=== PATIENT | female | born 1960 | race Caucasian/White ===

== ENCOUNTER 2022-09-25 12:43 | Outpatient (OUT) | payer BC, SELFPAY ==
--- NOTE | 2022-09-25 12:55 | MM_ITS ---
Patient: SHAKIR KENNY Exam Date: 09/25/2022 : 1960 Gender:F Ordering : COLE Brown DORSEY Admission #: [id number] Family : Order #: [id number] CLICK HERE TO VIEW EXAM RADIOLOGY REPORT PROCEDURE: MM TOMOSYNTHESIS DIAGNOSTIC BI, 09/25/2022, 12:50 US BREAST BI LIMITED, 09/25/2022, 13:32 COMPARISON: [facility] MAMM PHILIP DIAG W CAD, 11/17/2019. [facility] MAMM [facility] DIAG W CAD, 01/07/2017. [facility] MAMM [facility] SCRN W CAD DIG, 10/15/2012. INDICATIONS: Pain of both breasts N64.4 Calculator Name NCI Breast Cancer Risk Assessment Tool 5 Year Breast Cancer Risk 2.70% Lifetime Breast Cancer Risk 13.60% Personal Breast Cancer No Personal Ovarian Cancer No Treatments None Family Cancers Mother with breast cancer at age 70; Sister with cervical cancer at age 36; Aunt-maternal with colon cancer at age ~73. LOCATION: [facility] BREAST COMPOSITION: Extremely dense, which lowers the sensitivity of mammography. FINDINGS: DIAGNOSTIC CATEGORY 1--NEGATIVE. RIGHT BREAST: No significant suspicious finding. No significant change has occurred. LEFT BREAST: No significant suspicious finding. No significant change has occurred. RECOMMENDATIONS: ROUTINE MAMMOGRAM AND CLINICAL EVALUATION IN 12 MONTHS. PLEASE NOTE: A NORMAL MAMMOGRAM DOES NOT EXCLUDE THE POSSIBILITY OF BREAST CANCER. A CLINICALLY SUSPICIOUS PALPABLE LUMP SHOULD BE BIOPSIED. Dictated by: Anthony Soriano M.D. on 09/25/2022 at 15:05 Approved by: Anthony Soriano M.D. on 09/25/2022 at 15:09
--- NOTE | 2022-09-25 13:34 | US_ITS ---
Patient: SHAKIR KENNY Exam Date: 09/25/2022 : 1960 Gender:F Ordering : COLE Brown DORSEY Admission #: [id number] Family : Order #: [id number] CLICK HERE TO VIEW EXAM RADIOLOGY REPORT PROCEDURE: MM TOMOSYNTHESIS DIAGNOSTIC BI, 09/25/2022, 12:50 US BREAST BI LIMITED, 09/25/2022, 13:32 COMPARISON: [facility] MAMM PHILIP DIAG W CAD, 11/17/2019. [facility] MAMM PHILIP DIAG W CAD, 01/07/2017. [facility] MAMM PHILIP SCRN W CAD DIG, 10/15/2012. INDICATIONS: Pain of both breasts N64.4 Calculator Name NCI Breast Cancer Risk Assessment Tool 5 Year Breast Cancer Risk 2.70% Lifetime Breast Cancer Risk 13.60% Personal Breast Cancer No Personal Ovarian Cancer No Treatments None Family Cancers Mother with breast cancer at age 70; Sister with cervical cancer at age 36; Aunt-maternal with colon cancer at age ~73. LOCATION: [facility] BREAST COMPOSITION: Extremely dense, which lowers the sensitivity of mammography. FINDINGS: DIAGNOSTIC CATEGORY 1--NEGATIVE. RIGHT BREAST: No significant suspicious finding. No significant change has occurred. LEFT BREAST: No significant suspicious finding. No significant change has occurred. RECOMMENDATIONS: ROUTINE MAMMOGRAM AND CLINICAL EVALUATION IN 12 MONTHS. PLEASE NOTE: A NORMAL MAMMOGRAM DOES NOT EXCLUDE THE POSSIBILITY OF BREAST CANCER. A CLINICALLY SUSPICIOUS PALPABLE LUMP SHOULD BE BIOPSIED. Dictated by: Anthony Soriano M.D. on 09/25/2022 at 15:05 Approved by: Anthony Soriano M.D. on 09/25/2022 at 15:09
== END 2022-09-25 12:44 | disposition home or self-care (01) ==
LOC: MAMMO 12:47
PROVIDERS: PCP Nurse Practitioner; Visit Provider Nurse Practitioner
DX: N64.4 Mastodynia (principal); Z80.3 Family history of malignant neoplasm of breast; Z80.0 Family history of malignant neoplasm of digestive organs; Z80.8 Family history of malignant neoplasm of other organs or systems
CPT/HCPCS: 76642; 77066; G0279